=== PATIENT | female | born 1955 | race Caucasian/White ===

== ENCOUNTER → 2024-01-02 11:14 | Outpatient (REF) | payer OTHER, SELFPAY | LOC: WDC 11:14 | PROVIDERS: ATTENDING PHYSICIAN Nurse Practitioner Family | DX: Z12.31 Encounter for screening mammogram for malignant neoplasm of breast (principal) | CPT/HCPCS: 77063; 77067 ==

== ENCOUNTER 2024-01-08 13:22 | Emergency (ER) | payer OTHER, SELFPAY ==
[2024-01-08 13:30] VITALS: BP 187/121
[2024-01-08 13:49] LABS: % Basophils 0.9 % (0-2); % Eosinophils 4.4 % (0-6); % Immature Granulocytes 0.2 % (0-0.5); % Lymphocytes 31.5 % (20.5-51.1); % Monocytes 6.2 % (1.7-9.3); % Neutrophils 56.8 % (42.2-75.2); Absolute Basophils 0.1 10^3/uL (0-0.2); Absolute Eosinophils 0.3 10^3/uL (0-0.7); Absolute Lymphocytes 2.1 10^3/uL (1.2-3.4); Absolute Monocytes 0.4 10^3/uL (0.1-0.6); Absolute Neutrophils 3.8 10^3/uL (1.4-6.5); Hematocrit 43.1 % (37.0-47.0); Mean Corp Hgb Conc. 32.5 g/dL (33.0-37.0); Mean Corpuscular Hgb 29.3 pg (27.0-31.0); Mean Corpuscular Volume 90.2 fL (81.0-99.0); Mean Platelet Volume 9.7 fL (7.4-10.4); Nucleated Red Blood Cells % 0 %; Platelet Count 285 10^3/uL (130-400); Red Blood Cell Count 4.78 10^6/uL (4.20-5.40); Red Cell Dist. Width 12.9 % (11.5-14.5); White Blood Cell Count 6.7 10^3/uL (4.8-10.8)
[2024-01-08 14:02] LABS: ALT (SGPT) 30 U/L (0-35); AST (SGOT) 29 U/L (14-36); Albumin 4.8 g/dl (3.5-5.0); Alkaline Phosphatase 118 U/L (38-126); Blood Urea Nitrogen 17 mg/dl (7-17); Calcium 9.9 mg/dl (8.4-10.2); Carbon Dioxide 25 mmol/L (22-30); Chloride 104 mmol/L (98-107); Glucose 140 mg/dl (70-99); Potassium 4.6 mmol/L (3.5-5.1); Sodium 140 mmol/L (135-145); Total Bilirubin 0.4 mg/dl (0.2-1.3); Total Protein 7.6 g/dl (6.3-8.2); eGFR > 60.00
[2024-01-08 14:09] LABS: Lipase 75 U/L (23-300)
[2024-01-08 14:13] LABS: Troponin I < 0.012 ng/ml
--- NOTE | 2024-01-08 14:17 | ED.GENMED ---
History of Present Illness
General
Chief Complaint: Blood Pressure Problem
Time Seen by Provider: 01/08/24 14:17
Travel History
Have you had any contact with someone who has COVID-19?: No
Do you have any symptoms of coronavirus? Fever > 100 degrees, chills, cough, shortness of breath, sore throat, loss of taste or smell, muscle aches, or headache?: No
History of Present Illness
History of Present Illness:
HPI: The patient presents due to concerns of 'indigestion' over the last week. She states that the location of the discomfort is in the upper left chest wall. The pain does not worsen with exertion. She felt more lightheaded today so she came in
here for further evaluation. She was also concerned because of high blood pressure readings of about 180 at home. She does not have a history of high blood pressure. Her only significant past medical history is asthma. She was recently placed on
levothyroxine 25 mcg daily.
EXAM:
GENERAL: Well appearing in no distress, she is
HEENT: Moist oral mucosa
CARDIOVASCULAR: No murmurs, normal heart rate, regular rhythm, No chest wall tenderness
PULMONARY: No respiratory distress, breath sounds are clear but just very slightly decreased equally, there is no wheeze
ABDOMEN: Soft with no peritoneal signs, no tenderness
NEUROLOGIC: Excellent strength all extremities, no coordination deficits
PSYCHIATRIC: Appropriate mental status, normal insight and judgement
EXTREMITIES: Nontender, no edema, moves all extremities equally
SKIN: No rash, no lesions
TIME OF INITIAL ENCOUNTER: 2:45 PM
NUMBER AND COMPLEXITY OF PROBLEMS ADDRESSED AT THE ENCOUNTER
� Chronic conditions affecting care: Asthma
� Acute Exacerbation and/or Progression of Chronic Illness: This is an acute problem
� Differential Diagnosis includes: Hypertensive urgency, ACS, anxiety, undiagnosed high blood pressure
AMOUNT AND/OR COMPLEXITY OF DATA TO BE REVIEWED AND ANALYZED
� I performed an independent evaluation of and my interpretation is:
EKG: Sinus 119, normal axis, nonspecific ST abnormality, rate is increased compared to 08/29/2017
CT:
X-rays: Patient declined
Laboratory Studies: CBC, chemistries, and troponin are unremarkable
Other:
� Review of other/old records: The patient was seen here in 2017 with chest pain in the EKG at that time showed a slower ventricular rate than today
� Clinical information was obtained by an independent historian: None needed
� Prescriptions/Medications Considered but not given: Consider beta-sundar as she was tachycardic upon arrival however she has history of asthma
� Further testing considered but not performed: I offered and considered chest x-ray however the patient declined stating that she has no shortness of breath and no pleuritic pain and breath sounds are clear
RISK OF COMPLICATIONS AND/OR MORBIDITY OR MORTALITY OF PATIENT MANAGEMENT
� Social determinants of health affecting care: Lives at home
� Discussion with other providers:
� Escalation of care including admission/observation vs risk of discharge considered: I reviewed the patient's blood pressure readings over the phone and they are frequently in the 140s to 160s range over the past month plus. I
therefore recommend she start antihypertensive. Will give losartan prescription. She is also to follow-up Dr. Rooney. I also suggest that she try GI type meds such as Pepcid/PPI�she has already tried simethicone.
Past History
Past History
ED Past Medical History: Asthma, HTN and Hypercholesterolemia
ED Past Surgical History: Gynecological
Social History
Tobacco: Non-smoker
Drug: None
Living: with family
Employment: Employed (As a nurse at [employer])
Phy Exam
Physical Exam
Physical Exam:
See HPI
Course
Orders/Labs/Results
Orders:
Orders
01/08/24 13:24
ECG [Electrocardiogram (*1)] Urgent
Reason for Study: Chest Pain
EKG- Treatment ONCE
01/08/24 13:41
Complete Blood Count/With Diff Urgent
Comprehensive Metabolic Panel Urgent
Lipase Urgent
Troponin I Urgent
01/08/24 14:50
Losartan [Cozaar] 50 mg PO NOW STA
Abnormal Lab Results
01/08/24
13:41
MCHC 32.5 L g/dL
(33.0-37.0)
Glucose 140 H mg/dl
(70-99)
01/08/24 13:41
01/08/24 13:41
Vital Signs
Pulse: 82
Blood pressure: 162/82
Initial and Last Documented VS:
Initial Vital Signs
Temp Pulse Resp BP Pulse Ox
98.8 F 117 18 187/121 98
01/08/24 13:30 01/08/24 13:30 01/08/24 13:30 01/08/24 13:30 01/08/24 13:30
Last Documented Vital Signs
Temp Pulse Resp BP Pulse Ox
98.8 F 82 18 162/82 98
01/08/24 13:30 01/08/24 14:50 01/08/24 13:30 01/08/24 14:50 01/08/24 13:30
*Critical Care Note
Total Time (30-74mins, 75-104mins- exclusive of procedures): Not Applicable
ED Attending Note
-
Portions of this chart may have been created with voice recognition software.� Occasional wrong word or��sound alike� substitutions may have occurred due to the inherent limitations of voice recognition software.
Discharge Plan
Departure
Patient Disposition: Home (Routine Discharge)
Date of Disposition: 01/08/24
Time of Disposition: 14:50
Patient with high blood pressure during this ER visit?: Yes
Discharge Problem:
High blood pressure
Instructions: Chest Pain DCA Follow Up, BLOOD PRESSURE
Prescriptions:
New
losartan 50 mg tablet
50 mg PO DAILY Qty: 30 0RF
Referrals:
Rina Benjamin CRNP [Family Provider] -
Gricel Rooney, [Active] - Follow up in 2-3 days
Activity Restrictions/Additional Instructions:
I recommend you try [id number] omeprazole for the next 2 weeks�once daily. You could also try [id number]-[id number] Pepcid on an as-needed basis. Since you do have the chest pain, I recommend that you follow-up with Dr. Rooney�their office
should be calling you for follow-up.
Interventions
Interventions:
*General Assessment Last Done: 01/08/24 13:30
*ED COVID-19 Vaccine History Last Done: 01/08/24 13:30
Discharge Date and Time
Print Language: [place]
[2024-01-08 15:21] VITALS: BMI 39.3
[2024-01-08 15:22] VITALS: BP 142/78
[2024-01-08] MEDS: COZAAR 50 MG PO (15:34)
[2024-01-08 15:53] VITALS: BP 142/78
== END 2024-01-08 15:54 | disposition home or self-care (01) ==
LOC: EMR 13:22
PROVIDERS: Emergency Medicine; EMERGENCY PHYSICIAN Emergency Medicine; FAMILY PHYSICIAN Nurse Practitioner Family
DX: I10 Essential (primary) hypertension (principal); R42 Dizziness and giddiness; R07.89 Other chest pain; K30 Functional dyspepsia; J45.909 Unspecified asthma, uncomplicated
CPT/HCPCS: 99283; 80053; 83690; 84484; 85025; 93005

== ENCOUNTER → 2024-05-05 11:15 | Outpatient (REF) | payer OTHER, SELFPAY | LOC: MRI 3T 11:15 | PROVIDERS: ATTENDING PHYSICIAN Orthopaedic Surgery; FAMILY PHYSICIAN Nurse Practitioner Family | DX: M25.512 Pain in left shoulder (principal) | CPT/HCPCS: 73221 ==

== ENCOUNTER → 2025-01-02 11:56 | Outpatient (REF) | payer OTHER, SELFPAY | LOC: WDC 11:56 | PROVIDERS: ATTENDING PHYSICIAN Nurse Practitioner Family | DX: Z12.31 Encounter for screening mammogram for malignant neoplasm of breast (principal) | CPT/HCPCS: 77063; 77067 ==

== ENCOUNTER → 2025-06-21 11:21 | Outpatient (REF) | payer OTHER, SELFPAY | LOC: RCS 11:21 | PROVIDERS: ATTENDING PHYSICIAN Internal Medicine Cardiovascular Disease; FAMILY PHYSICIAN Internal Medicine | DX: I25.10 Atherosclerotic heart disease of native coronary artery without angina pectoris (principal) | CPT/HCPCS: 93306 ==